=== PATIENT | female | born 1965 | race Caucasian/White ===

== ENCOUNTER 2021-02-06 02:56 | Inpatient (IN) | payer OTHER ==
[2021-02-06] VITALS (8 sets, daily range): BP systolic 121–186; BP diastolic 67–98
[~2021-02-06] VITALS: Ht 172.7 cm; Wt 76.7 kg
--- NOTE | ~2021-02-06 | CON ---
[address] [address] CONSULTATION Name: MALIK DOMINGUEZ Room: [address] Maikel Wilkins#: [id number] Admission: 02/06/21 Attend Phys: Tan Peck Discharge: Date of : 65 Report #: [id number] THIS REPORT FOR: cc: [place] - Tori family physician/PCP [place] - No family physician/PCP Ruby Blevins MD ~ DATE OF CONSULTATION: 02/07/2021 NEPHROLOGY CONSULTATION CONSULTING PHYSICIAN: Dr. Owens. REASON FOR NEPHROLOGY CONSULTATION: Acute kidney injury. REASON FOR ADMISSION: Bilateral lower extremity swelling. HISTORY OF PRESENT ILLNESS: This is a 55-year-old female who presented with non-monitored diabetes, came in with bilateral lower extremity swelling and numbness and tingling in her legs and feet. Her U-tox was positive for methamphetamine as well as marijuana. She was found to have a creatinine of 2.6. She does use NSAIDs intermittently. She was started on IV fluids and creatinine has come down to 1.8. She was also found to have a hemoglobin A1c of 10.3. Her blood pressure is also elevated. She has been started on insulin for her diabetes. She was feeling all right this morning. She says she just woke up. No associated shortness of breath with her lower extremity edema, lower extremity edema seems to have improved. ALLERGIES: No known drug allergies. REVIEW OF SYSTEMS: As mentioned in history of present illness, otherwise 10-point review of systems are negative. FAMILY HISTORY: Mother had diabetes and breast cancer. SOCIAL HISTORY: Uses tobacco daily. U-tox is positive for methamphetamine, but the patient denies use. She uses marijuana on a regular basis and she also uses alcohol on a regular basis. PAST MEDICAL AND SURGICAL HISTORY: Anxiety. HOME MEDICATIONS: None. She uses NSAIDs intermittently. PHYSICAL EXAMINATION: VITAL SIGNS: Blood pressure is 176/93, pulse rate was 76, temperature 36.4, respiratory rate was 16, pulse ox is 96% [place] [address] CONSULTATION Name: MALIK DOMINGUEZ Room: [address] MRadhaR.#: [id number] Admission: 02/06/21 Attend Phys: Tan Peck Discharge: Date of : 65 Report #: [id number] GENERAL: The patient who is alert, oriented x 3. HEENT: Atraumatic and normocephalic. Conjunctivae normal. She does have some facial edema. NECK: No JVD. CHEST: Bilaterally diminished breath sounds posteriorly. No crackles or wheezing. CARDIOVASCULAR: S1, S2 normal. No murmurs. ABDOMEN: Soft, nondistended, nontender. LOWER EXTREMITIES: 2+ edema. NEUROLOGICAL: Function is grossly intact. PSYCHIATRIC: Her mood and affect seems to be normal. LABORATORY DATA: WBC 12.0, hemoglobin 9.0. Sodium was 142; potassium was 4.8; creatinine was 1.8, down from 2.6. Glucose was 136. Hemoglobin A1c was 10.3. Albumin was 2.5. Other labs are reviewed. IMAGING: Venous Doppler study and chest x-ray were reviewed. ASSESSMENT: 1. Acute kidney injury, could be having chronic kidney disease as well because she does have underlying diabetes for which she was not taking any medications. Baseline creatinine is not known. She came with a creatinine of 2.6 and creatinine is down to 1.8. She has also been using NSAIDs intermittently, which contribute to renal dysfunction as well and she did have some intravascular volume depletion. UA showing 3+ protein, 11-20 rbc's per high-power field, but it does look like a contaminated specimen. We will check a renal ultrasound. 2. Lower extremity edema, proteinuria could be contributing. We will check a urine protein to creatinine ratio. 3. Diabetes type 2, not on any medications at home. Hemoglobin A1c 10.3. Primary team is treating that. 4. U-tox positive for methamphetamine and marijuana. 5. Metabolic acidosis. 6. Hypertension, not on any medications. PLAN: 1. Stop IV fluids now. She has been hydrating herself orally. 2. Creatinine is down to 1.8, but it does look like she could be having underlying diabetic nephropathy, we will check urine protein to creatinine ratio. Avoid all nephrotoxic agents. 3. We will order hydralazine for now for her blood pressure control, but once we have stabilized her creatinine, she will need to be started on JOSEPHINE inhibitor or ARB. 4. We will check her renal ultrasound as well. 5. Repeat a UA once her creatinine has stabilized. [address] [place] [address] CONSULTATION Name: ANGELICAMALIKNATALY ROSALES Room: [address] Maikel Wilkins#: [id number] Admission: 02/06/21 Attend Phys: Tan Peck Discharge: Date of : 65 Report #: [id number] 6. Hypoalbuminemia is also contributing to lower extremity edema. Thank you for this consultation. We will follow with you. Discussed with the patient and the patient's nurse. By: [id number] Blevins MD /lul
[2021-02-06 04:16] LABS: ABSOLUTE BASOPHILS 0.1 thou/uL (0.0-0.2); ABSOLUTE EOSINOPHILS 0.3 thou/uL (0.0-0.7); ABSOLUTE LYMPHOCYTES 3.3 thou/uL (0.8-5.3); ABSOLUTE MONOCYTES 0.7 thou/uL (0.0-1.2); ABSOLUTE NEUTROPHILS 6.4 thou/uL (1.6-8.1); BASOPHILS 1.2 %; EOSINOPHILS 2.5 %; HEMATOCRIT 28.1 % (37.0-47.0); HEMOGLOBIN 9.7 gm/dL (12.0-15.0); LYMPHOCYTES 30.5 %; MCHC 34.5 g/dL (28.0-37.0); MCV 84.1 fL (80.0-100.0); MONOCYTES 6.1 %; MPV 7.6 fl. (7.2-11.1); NUCLEATED RBCS 0 /100WBC; PLATELET COUNT* 347 thou/uL (150-400); POLYS 59.7 %; RBC 3.34 mil/uL (4.20-5.00); RDW-CV 15.1 % (10.5-14.5); WBC 10.7 thou/uL (4.0-11.0)
[2021-02-06 04:30] LABS: CALCIUM 7.6 mg/dL (8.5-10.1); CREATININE 2.6 mg/dL (0.6-1.3); POTASSIUM 4.2 mmol/L (3.5-5.1)
[2021-02-06 04:41] LABS: ALBUMIN 2.5 g/dL (3.4-5.0); TOTAL BILIRUBIN 0.2 mg/dL (<0.1-1.0); TOTAL PROTEIN 6.5 g/dL (6.4-8.2)
[2021-02-06 06:14] LABS: PCO2 34.4 mmHg (35.0-45.0); PO2 112.4 mmHg (75.0-100.0)
[2021-02-06 06:40] LABS: URINE BILIRUBIN NEGATIVE (Negative); URINE BLOOD 2+ (Negative); URINE CLARITY CLEAR; URINE COLOR YELLOW; URINE GLUCOSE-RANDOM 2+ (Negative); URINE KETONES NEGATIVE (Negative); URINE LEUKOCYTES-REFLEX NEGATIVE (Negative); URINE NITRITE-REFLEX NEGATIVE (Negative); URINE PROTEIN 3+ (Negative); URINE SPECIFIC GRAVITY >= 1.030 (1.005-1.030); URINE UROBILINOGEN 0.2 E.U./dl (0.2-1.0)
[2021-02-06 06:47] LABS: AMP/METHAMP POSITIVE (Negative); BARBITURATES Negative (Negative); BENZODIAZEPINES Negative (Negative); COCAINE Negative (Negative); METHADONE Negative (Negative); OPIATES Negative (Negative); PCP Negative (Negative); THC POSITIVE (Negative)
[2021-02-06 06:55] LABS: BACTERIA-REFLEX 1-9 Few /HPF (None Seen); MUCUS >6 Heavy strn/LPF (None Seen); SQUAMOUS 4-10 Moderate /LPF (0-3); URINE WBC-REFLEX 0-5 Rare /HPF (0-5)
[2021-02-06 06:56] LABS: COARSE GRANULAR CASTS 4-10 Moderate /LPF (None Seen); CRYSTALS None Seen /LPF (None Seen); HYALINE CASTS 4-10 Moderate /LPF (None Seen)
--- NOTE | 2021-02-06 12:20 | EKG ---
[place] [address] ELECTROCARDIOGRAM REPORT Name: DOMINGUEZMALIK BOBBY Room: [address]R.#: [id number] Admission: 02/06/21 Attend Phys: Jackelyn Esquivel Discharge: Date of : 65 Date of Service: 02/06/21 0403 Report #: [id number] THIS REPORT FOR: //name// [facility] ED Test Date: 2021-02-06 Test Time: 04:03:06 Pat Name: MALIK DOMINGUEZ Department: Room: [facility] Gender: F Financial Risk Manager: TLKM : 1965 Requested By: Holly Wilson Order Number: [id number] MD: Bharath Liz Measurements Intervals [place] Rate: 79 P: 67 SC: 163 QRS: 28 QRSD: 102 T: 88 QT: 412 QTc: 473 Interpretive Statements Sinus rhythm Probable left atrial enlargement Nonspecific T abnormalities, lateral leads No previous ECG available for comparison Electronically Signed On 02-06-2021 12:20:26 CDT by Bharath Liz [email or web address] <ELECTRONICALLY SIGNED> By: Bharath Liz MD, [facility] 02/06/21 1220 0403 0403 Bharath Liz MD, [facility] /EPI
[2021-02-07 03:58] VITALS: BP 176/93
[2021-02-07 05:36] LABS: GLYCOHEMOGLOBIN (HGB A1C) 10.3 % (4.8-5.6)
[2021-02-07 05:48] LABS: HEMATOCRIT 26.7 % (37.0-47.0); MCH 28.9 pg (26.0-34.0); MCHC 33.7 g/dL (28.0-37.0); MCV 85.9 fL (80.0-100.0); MPV 7.8 fl. (7.2-11.1); RBC 3.1 mil/uL (4.20-5.00); RDW-CV 15.4 % (10.5-14.5)
[2021-02-07 06:00] LABS: CALCIUM 7.3 mg/dL (8.5-10.1); CREATININE 1.8 mg/dL (0.6-1.3); MAGNESIUM 1.5 mg/dL (1.8-2.4); POTASSIUM 4.8 mmol/L (3.5-5.1)
[2021-02-07 09:00] VITALS: BP 178/94
[2021-02-07 12:20] VITALS: BP 177/87
[2021-02-07 16:00] VITALS: BP 153/82
[2021-02-07 20:00] VITALS: BP 177/81
[2021-02-08] VITALS (8 sets, daily range): BP systolic 164–192; BP diastolic 78–92
[2021-02-08 04:55] LABS: HEMATOCRIT 27.3 % (37.0-47.0); HEMOGLOBIN 9.2 gm/dL (12.0-15.0); MCH 29.5 pg (26.0-34.0); MCHC 33.9 g/dL (28.0-37.0); MCV 87.1 fL (80.0-100.0); MPV 8.1 fl. (7.2-11.1); RBC 3.13 mil/uL (4.20-5.00); RDW-CV 15.5 % (10.5-14.5); WBC 11.3 thou/uL (4.0-11.0)
[2021-02-08 05:13] LABS: CALCIUM 7.1 mg/dL (8.5-10.1); CREATININE 1.8 mg/dL (0.6-1.3); POTASSIUM 4.8 mmol/L (3.5-5.1)
[2021-02-08] MEDS ORDERED: NORVASC5 MG PO ×2 (12:11→12:13)
[2021-02-08] MEDS ORDERED: METFORMIN HCL500 M3 PO (12:14)
[2021-02-08] MEDS ORDERED: HYDROCHLOROTH12.5 M2 PO (12:17)
== END 2021-02-08 13:00 | disposition home or self-care (01) | DRG 683 ==
LOC: M.ERS 02:56 → M.TBA-ER 05:02 → M.2W 05:02
PROVIDERS: Family Medicine; Internal Medicine; Personal Emergency Response Attendant; ADMIT Internal Medicine; ATTEND Internal Medicine
DX: N17.9 Acute kidney failure, unspecified (principal); E87.2 Acidosis; I16.0 Hypertensive urgency; F41.9 Anxiety disorder, unspecified; E11.65 Type 2 diabetes mellitus with hyperglycemia; F19.10 Other psychoactive substance abuse, uncomplicated; E11.22 Type 2 diabetes mellitus with diabetic chronic kidney disease; I12.9 Hypertensive chronic kidney disease with stage 1 through stage 4 chronic kidney disease, or unspecified chronic kidney disease; N18.30 Chronic kidney disease, stage 3 unspecified; Z20.822 Contact with and (suspected) exposure to COVID-19; Z83.3 Family history of diabetes mellitus; Z80.3 Family history of malignant neoplasm of breast; Z91.14 Patient's other noncompliance with medication regimen

== ENCOUNTER 2021-04-08 15:40 | Emergency (ER) | payer OTHER ==
[~2021-04-08] VITALS: Ht 172.7 cm; Wt 68.0 kg
[~2021-04-08 15:40] MED LIST: HYDROCHLOROTH12.5 M2 PO; METFORMIN HCL500 M3 PO; NORVASC5 MG PO
[2021-04-08 16:35] LABS: URINE BILIRUBIN NEGATIVE (Negative); URINE BLOOD 1+ (Negative); URINE CLARITY CLEAR; URINE COLOR YELLOW; URINE GLUCOSE-RANDOM 2+ (Negative); URINE KETONES NEGATIVE (Negative); URINE LEUKOCYTES-REFLEX NEGATIVE (Negative); URINE NITRITE-REFLEX NEGATIVE (Negative); URINE PROTEIN 3+ (Negative); URINE SPECIFIC GRAVITY 1.025 (1.005-1.030); URINE UROBILINOGEN 0.2 E.U./dl (0.2-1.0)
[2021-04-08 16:42] LABS: BACTERIA-REFLEX None Seen /HPF (None Seen); CASTS None Seen /LPF (None Seen); CRYSTALS None Seen /LPF (None Seen); MUCUS 0-3 Light strn/LPF (None Seen); SQUAMOUS 0-3 Few /LPF (0-3); URINE RBC 0-2 Rare /HPF (0-2); URINE WBC-REFLEX 0-5 Rare /HPF (0-5)
[2021-04-08 17:24] LABS: ABSOLUTE BASOPHILS 0.1 thou/uL (0.0-0.2); ABSOLUTE EOSINOPHILS 0.2 thou/uL (0.0-0.7); ABSOLUTE LYMPHOCYTES 1.7 thou/uL (0.8-5.3); ABSOLUTE MONOCYTES 0.4 thou/uL (0.0-1.2); BASOPHILS 0.9 %; EOSINOPHILS 1.7 %; HEMATOCRIT 32.3 % (37.0-47.0); HEMOGLOBIN 11.2 gm/dL (12.0-15.0); LYMPHOCYTES 16.3 %; MCH 29.2 pg (26.0-34.0); MCHC 34.7 g/dL (28.0-37.0); MCV 84.2 fL (80.0-100.0); MONOCYTES 3.4 %; MPV 7.1 fl. (7.2-11.1); NUCLEATED RBCS 0 /100WBC; PLATELET COUNT* 379 thou/uL (150-400); POLYS 77.7 %; RBC 3.84 mil/uL (4.20-5.00); RDW-CV 14.9 % (10.5-14.5); WBC 10.3 thou/uL (4.0-11.0)
[2021-04-08 17:33] LABS: CALCIUM 8.1 mg/dL (8.5-10.1); CREATININE 1.8 mg/dL (0.6-1.3); POTASSIUM 4.4 mmol/L (3.5-5.1)
[2021-04-08 17:37] LABS: ALBUMIN 2.4 g/dL (3.4-5.0); TOTAL BILIRUBIN 0.1 mg/dL (<0.1-1.0); TOTAL PROTEIN 6.7 g/dL (6.4-8.2)
[2021-04-08] MEDS ORDERED: METFORMIN HCL500 M3 PO (17:38)
[2021-04-08] MEDS ORDERED: FLEXERIL PO (17:38)
[2021-04-08] MEDS ORDERED: NORCO5 PO ×2 (17:38→17:55)
[2021-04-08 18:04] VITALS: BP 177/95
== END 2021-04-08 18:05 | disposition home or self-care (01) ==
LOC: M.ERS 15:40
PROVIDERS: Physician Assistant
DX: M54.5 Low back pain (principal); R11.0 Nausea; M25.551 Pain in right hip; E11.9 Type 2 diabetes mellitus without complications; Z76.0 Encounter for issue of repeat prescription

== ENCOUNTER 2021-04-20 08:48 | Emergency (ER) | payer OTHER ==
[~2021-04-20] VITALS: Ht 172.7 cm; Wt 77.1 kg
[~2021-04-20 08:48] MED LIST changes: +FLEXERIL PO; +NORCO5 PO
[2021-04-20] MEDS ORDERED: LIDODERM1 EACH TOP (10:08)
[2021-04-20] MEDS ORDERED: HYDROCODON-ACE1 EAC7 PO (10:08)
[2021-04-20 10:09] VITALS: BP 158/83
== END 2021-04-20 10:10 | disposition home or self-care (01) ==
LOC: M.ERS 08:48
DX: M54.9 Dorsalgia, unspecified (principal); E11.9 Type 2 diabetes mellitus without complications; F41.9 Anxiety disorder, unspecified; Z77.22 Contact with and (suspected) exposure to environmental tobacco smoke (acute) (chronic)